=== PATIENT | male | born 1940 | race African-American/Black ===

== ENCOUNTER 2016-12-02 07:26 | Day surgery (SDC) | payer MEDICARE ==
[2016-11-27 15:33] VITALS: BMI 25.2
[~2016-12-02 07:26] MED LIST: LACTATED RINGERS 1,000 ML IV SCH
[2016-12-02 07:50] VITALS: TEMP 97
[2016-12-02] MEDS ORDERED: LACTATED RINGERS 1,000 ML IV ONE (07:56)
[2016-12-02 07:59] LABS: Glucose,Whole Blood 101 mg/dL (75-99)
--- NOTE | 2016-12-02 08:04 | P.GSHP ---
History of Present Illness H&P Date: 12/02/16 CHIEF COMPLAINT: GERD HISTORY OF PRESENT ILLNESS: The patient is a 76-year-old male who presents reports gastroesophageal reflux disease. Upper endoscopy was offered for further evaluation and management. PAST MEDICAL HISTORY: Please see list. PAST SURGICAL HISTORY: Please see list. MEDICATIONS: Please see list. ALLERGIES: Please see list. SOCIAL HISTORY: No illicit drug use FAMILY HISTORY: No reports of Crohn disease or ulcerative colitis. REVIEW OF ORGAN SYSTEMS: CONSTITUTIONAL: No reports of fevers or chills. GI: Denies any blood in stools or constipation. PHYSICAL EXAM: VITAL SIGNS: Stable GENERAL: Well-developed and pleasant in no acute distress. HEENT: No scleral icterus. Extraocular movements grossly intact. Moist buccal mucosa. NECK: Supple without lymphadenopathy. CHEST: Unlabored respirations. Equal bilateral excursions. CARDIOVASCULAR: Regular rate and rhythm. Distal 2+ pulses. ABDOMEN: Soft, nondistended. MUSCULOSKELETAL: No clubbing, cyanosis, or edema. ASSESSMENT: 1. Gastroesophageal reflux disease PLAN: 1. Recommend proceeding with an upper endoscopy Past Medical History Past Medical History: Atrial Fibrillation, Coronary Artery Disease (CAD), Cancer , CVA/TIA, Diabetes Mellitus, Eye Disorder, GERD/Reflux, Hyperlipidemia, Hypertension, Osteoarthritis (OA), Prostate Disorder, Sleep Apnea/CPAP/BIPAP Additional Past Medical History / Comment(s): NIDDM type II, kidney Stone, prostate cancer-1998, bilateral glaucoma, CVA PER CT SCAN (DENIES WEAKNESS OR PARALYSIS), NO TX USED FOR SLEEP APNEA., HIATAL HERNIA, recent sinus infection with antibiotics , vocal cord polyps. History of Any Multi-Drug Resistant Organisms: None Reported Past Surgical History: Appendectomy, Cardiac Valve Replacement, Heart Catheterization, Hernia Repair, Orthopedic Surgery, Pacemaker, Prostate Surgery Additional Past Surgical History / Comment(s): 01/15/16 laparoscopic hiatal hernia repair with mesh. Lt Knee Surg. EGD. AORTIC VALVE REPLACED. PACEMAKER - [employer] RIGHT CARPAL TUNNEL., CATARACTS, DAVID FUNDOPLICATION-01/15/16 Past Anesthesia/Blood Transfusion Reactions: No Reported Reaction Type of Cardiac Device: Permanent Pacemaker Device Placement Date:: 2014 Smoking Status: Former smoker - Past Family History Mother Family Medical History: CVA/TIA, Hypertension Additional Family Medical History / Comment(s): Mother in her 60's. She also had an enlarged heart. Sister(s) Family Medical History: Cancer, Coronary Artery Disease (CAD) Additional Family Medical History / Comment(s): LUNG CA Brother(s) Family Medical History: Cancer Additional Family Medical History / Comment(s): PROSTATE CA Medications and Allergies Home Medications Medication Instructions Recorded Confirmed Type Dorzolamide HCl/Timolol Maleat 1 drop BOTH EYES BID 09/27/14 11/27/16 History [Dorzolamide-Timolol Eye Drops] Aspirin EC [Ecotrin Low Dose] 81 mg PO DAILY #30 tablet.dr 10/04/14 11/27/16 Rx Metoprolol Tartrate [Lopressor] 25 mg PO BID #60 tab 10/04/14 11/27/16 Rx Simvastatin [Zocor] 20 mg PO HS #30 tab 10/04/14 11/27/16 Rx metFORMIN HCL [Glucophage] 500 mg PO BID-W/MEALS #60 tab 10/04/14 11/27/16 Rx Cetirizine HCl [Zyrtec] 10 mg PO DAILY 01/16/15 11/27/16 History Warfarin [Coumadin] 10 mg PO SUMOWETHFRSA 01/13/16 11/27/16 History Warfarin [Coumadin] 15 mg PO TU 01/13/16 11/27/16 History Brimonidine Tartrate [Alphagan P 1 drops BOTH EYES BID 11/27/16 11/27/16 History 0.1% Ophth Soln] Cefuroxime Axetil [Ceftin] 500 mg PO BID 11/27/16 11/27/16 History Latanoprost Ophth [Xalatan 0.005%] 1 drops BOTH EYES HS 11/27/16 11/27/16 History Multivitamins, Thera [Multivitamin 1 tab PO DAILY 11/27/16 11/27/16 History (formulary)] Olopatadine HCl [Pataday] 1 drop BOTH EYES DAILY 11/27/16 11/27/16 History Pilocarpine 2% Ophth Soln [Isopto 1 drops LEFT EYE Q6H 11/27/16 11/27/16 History Carpine 2%] Allergies Allergy/AdvReac Type Severity Reaction Status Date / Time Penicillins AdvReac Rash/Hives Verified 11/27/16 14:59
[2016-12-02] MEDS ORDERED: PROPOFOL 10 MG/ML 20 ML VIAL IV ONE (08:05)
[2016-12-02] MEDS ORDERED: LIDOCAINE 1% INJ 10MG/ML (20 ML MDV) ONE (08:05)
[2016-12-02 08:26] VITALS: PULSE 60
--- NOTE | 2016-12-02 08:26 | P.PCN ---
Date of Procedure: 12/02/16 Preoperative Diagnosis: Postoperative Diagnosis: Procedure(s) Performed: Implants: Indications for Procedure: Operative Findings: Description of Procedure: PREOPERATIVE DIAGNOSIS: Gastroesophageal reflux disease. POSTOPERATIVE DIAGNOSIS: Gastroesophageal reflux disease. OPERATION: Esophagogastroduodenoscopy. SURGEON: Lyly Goodwin MD ANESTHESIA: MAC. INDICATIONS: The patient is a 76-year-old male who presents with a history of reflux disease. He had a hiatal hernia repair in December 2015 for a large Hill grade 4 hiatal hernia. Benefits and risks of the procedure were described. Informed consent was obtained. DESCRIPTION: The patient was brought into the endoscopy suite and laid in the left lateral decubitus position. An Olympus gastroscope was passed along the posterior oropharynx down to the distal esophagus where the squamocolumnar junction was encountered at 40 cm from the incisors. The stomach was entered and no bile reflux was found. Additional findings are listed below. The first through third portion of the duodenum was examined and unremarkable. Retroflexion of the scope confirmed Hill grade 2 lower esophageal valve. The squamocolumnar junction demostrated no LA grade A erosive esophagitis. The stomach was desufflated. The patient tolerated the procedure well. FINDINGS: Squamocolumnar junction 40 cm from the incisors. Diaphragmatic hiatus at 40 cm. Hill grade 2 lower esophageal valve. No LA grade A erosive esophagitis. No active duodenitis. RECOMMENDATIONS: Medical therapy as needed. Upper endoscopy as needed.
[2016-12-02 08:47] VITALS: BP 107/67; RESP 18
== END 2016-12-02 09:10 | disposition home or self-care (01) ==
LOC: ORWHC2ENDO 07:26
PROVIDERS: ATTEND Surgery Plastic and Reconstructive Surgery
DX: K21.9 Gastro-esophageal reflux disease without esophagitis (principal); Z87.891 Personal history of nicotine dependence; I10 Essential (primary) hypertension; I48.91 Unspecified atrial fibrillation; I25.10 Atherosclerotic heart disease of native coronary artery without angina pectoris; E78.5 Hyperlipidemia, unspecified; E11.9 Type 2 diabetes mellitus without complications; Z79.84 Long term (current) use of oral hypoglycemic drugs; H40.9 Unspecified glaucoma; G47.33 Obstructive sleep apnea (adult) (pediatric); Z95.0 Presence of cardiac pacemaker; N42.9 Disorder of prostate, unspecified; Z79.01 Long term (current) use of anticoagulants; Z79.82 Long term (current) use of aspirin; Z79.899 Other long term (current) drug therapy; Z88.0 Allergy status to penicillin
CPT/HCPCS: 43235; J2001; J2704

== ENCOUNTER → 2016-12-03 | Outpatient (CLI) | payer MEDICARE ==
--- NOTE | 2016-12-03 22:50 | PN ---
PROGRESS NOTE DATE OF SERVICE: 12/03/2016 A 76-year-old gentleman has been followed in the [facility] for treatment of obstructive sleep apnea-hypopnea syndrome. Last time I saw patient a little bit less than 1 year ago. At that time, I recommended the patient to proceed with the sleep studies and CPAP titration for the treatment of obstructive sleep apnea, but for different family reasons, the patient was not able to do it. He left the [facility] at the time when he was supposed to come for the test. The patient has a history of obstructive sleep apnea-hypopnea syndrome in the past, but because of the problem with CPAP equipment, he stopped using equipment about 5 years ago. The patient continued to have snoring and awakenings from sleep. [place] Sleepiness Scale is in extremely high range, 21. The patient continued to have episodes of paroxysmal atrial fibrillation. CURRENT MEDICATIONS: 1. Metformin. 2. Cetirizine. 3. Metoprolol. 4. Simvastatin. 5. eye drops for glaucoma, 4 different types. PHYSICAL EXAMINATION: GENERAL: A 76-year-old gentleman without distress. VITAL SIGNS: BP 117/84, HR 74, RR 16, height 5 feet 3 inches, weight 163.8, BMI 28.1. Neck 15 inches in circumference. Temp is 98 degrees, oxygen saturation at room air 97%. HEENT: PERRLA, EOMI, evaluation of oropharynx showed tongue protrudes midline, status post uvulectomy. NECK: Supple, no JVD. Thyroid is not palpable. LUNGS: Clear to percussion and to auscultation. Good air exchange. No wheezing or rhonchi. HEART: S1, S2 regular. No murmurs, gallops, or rubs. ABDOMEN: Soft and nontender. Bowel sounds are present. No organomegaly appreciated. EXTREMITIES: No clubbing or cyanosis. PHYSIOLOGIST: Awake, alert, and oriented X3. Cranial nerves 2 to 7 intact. There is no fasciculation or atrophy. noted. No focal deficits observed. IMPRESSION: 1. Snoring, awakenings from sleep, significant excessive daytime sleepiness with [place] Sleepiness Scale of 21, history of obstructive sleep apnea-hypopnea syndrome in the past, obstructive sleep apnea-hypopnea syndrome. 2. Hypertension. 3. Diabetes mellitus. 4. Acid reflux. 5. Hyperlipidemia. 6. Status post aortic valve replacement. 7. Episodes of paroxysmal atrial fibrillation. 8. Status post permanent pacemaker insertion. 9. Glaucoma. Patient is using 4 different eye drops. 10.Status post tonsillectomy. 11.Status post uvulectomy. PLAN: 1. Polysomnography for evaluation of the patient breathing during the sleep. 2. CPAP titration for correction of respiratory abnormalities during sleep. 3. The patient should receive new CPAP supplies, including machine, mask, tube and filters. 4. No driving if feels any sleepiness. 5. Sleep hygiene with regular time in bed for at least 12 hours. Thank you very much for allowing me to participate in management of your patient. Rashawn Iqbal MD, PhD, FAASM Diplomat of [employer] Consulting Actuary of [facility] [place] MMODL / IJN: [id number] /
== END | disposition home or self-care (01) ==
LOC: SLEEP 15:03
PROVIDERS: ATTEND Internal Medicine
DX: G47.10 Hypersomnia, unspecified (principal); I10 Essential (primary) hypertension; E11.9 Type 2 diabetes mellitus without complications; K21.9 Gastro-esophageal reflux disease without esophagitis; E78.5 Hyperlipidemia, unspecified; H40.9 Unspecified glaucoma; I48.0 Paroxysmal atrial fibrillation; Z95.2 Presence of prosthetic heart valve; Z90.89 Acquired absence of other organs; Z90.79 Acquired absence of other genital organ(s); Z79.899 Other long term (current) drug therapy

== ENCOUNTER → 2017-09-15 | Outpatient (CLI) | payer MEDICARE | END | disposition home or self-care (01) | LOC: LABWHC1 15:42 | PROVIDERS: ATTEND Internal Medicine Infectious Disease | DX: R63.4 Abnormal weight loss (principal); R53.82 Chronic fatigue, unspecified; Z95.2 Presence of prosthetic heart valve | CPT/HCPCS: 36415; 87040 ==

== ENCOUNTER → 2017-10-08 | Outpatient (CLI) | payer MEDICARE ==
[2017-10-08 20:34] LABS: Gliadin AB IgA, Unit 29.3 U/mL
== END | disposition home or self-care (01) ==
LOC: LABWHC1 15:42
PROVIDERS: ATTEND Internal Medicine Gastroenterology
DX: R63.4 Abnormal weight loss (principal)
CPT/HCPCS: 36415; 83516

== ENCOUNTER → 2017-12-24 | Day surgery (SDC) | payer MEDICARE ==
[2017-12-23 09:06] VITALS: BMI 25.0
[~2017-12-24] MED LIST changes: +LACTATED RINGERS 1,000 ML IV ONE; -LACTATED RINGERS 1,000 ML IV SCH; +LIDOCAINE 1% 20 ML VIAL (10MG/ML) FOR IV START INTRADERMA ONE; +LIDOCAINE 1% INJ 10MG/ML (20 ML MDV) ONE; +PROPOFOL 10 MG/ML 20 ML VIAL IV ONE
[2017-12-24 08:07] VITALS: TEMP 98.1
--- NOTE | 2017-12-24 08:51 | P.PCN ---
Date of Procedure: 12/24/17 Procedure(s) Performed: BRIEF HISTORY: Patient is a 77-year-old, pleasant, Citizen Of [place] male scheduled for an upper endoscopy as a part of variation of positive celiac serology. Patient is having progressive weight loss of 20 pounds in the last 6 months duration and has a part of workup he had a celiac panel done that showed positive tissue transglutaminase antibody. His is hence scheduled for an upper endoscopy with a duodenal biopsy today.. PROCEDURE PERFORMED: Esophagogastroduodenoscopy with biopsy. PREOPERATIVE DIAGNOSIS: Mild antral gastritis and normal duodenum. IV sedation per anesthesia. PROCEDURE: After informed consent was obtained, the patient was brought into the endoscopy unit. IV sedation was administered by Anesthesia under continuous monitoring. Initially the Olympus GIF-140 video endoscope was inserted into the mouth. Esophagus intubated without any difficulty. It was gradually advanced into the stomach and duodenum and carefully examined. The bulb and the second part of the duodenum appeared normal. Multiple biopsies were done from the duodenum to rule out celiac disease. The scope at this time was withdrawn to the stomach, adequately insufflated with air, and upon careful examination, mucosa of the antrum, patchy areas of erythema consistent with gastritis and biopsies were done from this area. The body, cardia and the fundus appeared normal. The scope was then withdrawn into the esophagus. The GE junction was located at 39 cm from the incisors. The esophagus appeared normal. There were no erosions or ulcerations seen and the patient tolerated the procedure well. IMPRESSION: 1. Normal-appearing duodenum status post multiple biopsies to rule out celiac disease. 2. Mild antral gastritis. RECOMMENDATIONS: The findings of this examination were discussed with the patient as well as his family. He was advised to follow with the biopsy results.
[2017-12-24 09:06] VITALS: RESP 18
[2017-12-24 09:19] VITALS: BP 100/69; PULSE 72
[2017-12-27 08:53] LABS: Glucose,Whole Blood 92 mg/dL (75-99)
== END ==
LOC: ORWHC2ENDO 07:22
PROVIDERS: ATTEND Internal Medicine Gastroenterology
DX: K29.50 Unspecified chronic gastritis without bleeding (principal); R76.8 Other specified abnormal immunological findings in serum; E78.5 Hyperlipidemia, unspecified; E11.9 Type 2 diabetes mellitus without complications; Z88.0 Allergy status to penicillin; Z79.899 Other long term (current) drug therapy; Z79.01 Long term (current) use of anticoagulants
CPT/HCPCS: 88305; 43239; J2001; J2704

== ENCOUNTER → 2019-01-26 | Outpatient (CLI) | payer MEDICARE ==
--- NOTE | 2019-01-26 15:28 | PN ---
PROGRESS NOTE DATE OF SERVICE: 01/26/2019 An 78-year-old gentleman who has been followed in the Sleep Center for treatment of obstructive sleep apnea-hypopnea syndrome. Patient continued to use his CPAP equipment but has problems related to the mask because recently he has had surgery on his eye for glaucoma and with the using a full-face mask which covered nose, he feels discomfort in the area of his eye. [place] Sleepiness Scale today significantly increased to 15. I checked his CPAP unit, range of the pressure is 6-10 with average pressure 9 cm of water. Leak is 8 L/minute, which is acceptable for the full-face mask. Usage for the last month is 11/30 nights and 30 nights more than 4 hours with average usage 4.1 hours. Unfortunately, apnea-hypopnea index in the quite high range 20.9 with central apnea index reading 10.6. MEDICATIONS: Eliquis, simvastatin, cetirizine, eye drops, prednisone and . PHYSICAL EXAM: Patient in no distress. BP 123/83, HR 64, RR 16, height 5, 2, weight 159.8, which is in 3 pounds more than during the last visit, temperature 97.4, oxygen saturation at room air 100%. OROPHARYNX: Low position of soft palate. No uvula. NECK: Supple, no JVD. Thyroid is not palpable. LUNGS: Clear to percussion and to auscultation. Good air exchange. No wheezing or rhonchi. HEART: S1, S2 regular. No murmurs, gallops, or rubs. ABDOMEN: Soft and nontender. Bowel sounds are present. No organomegaly appreciated. EXTREMITIES: No clubbing or cyanosis. DIRECTOR RADIO NEWS: Awake, alert, and oriented X3. Cranial nerves 2 to 7 intact. There is no fasciculation or atrophy. noted. No focal deficits observed. IMPRESSION: 1. Mostly central obstructive sleep apnea-hypopnea syndrome in severe range with apnea- hypopnea index 30.1, improved but not normalized on CPAP. Apnea-hypopnea index on CPAP 20.9, central apnea index 10.6. 2. Hypertension. 3. Diabetes mellitus. 4. Acid reflux. 5. Hyperlipidemia. 6. Status post aortic valve replacement. 7. History of paroxysmal atrial fibrillation. 8. Status post permanent pacemaker insertion. 9. Glaucoma, status post stent insertion for treatment of glaucoma to the left eye. 10.Status post tonsillectomy. 11.Status post uvulectomy. PLAN: 1. Patient needs titration with BiPAP, possibly BiPAP ST mode or if necessary auto servo ventilator for possibility to use auto servo ventilator we have to check ejection fraction. 2. We need to get information about results of recent echocardiogram with ejection fraction. 3. Sleep hygiene with regular time in bed for at least 7.5 hours. 4. No driving if feeling sleepiness. 5. Will see patient with Dream Wear mask which goes under the nose and this is full- face mask, but does not cover the nose above. Subsequently it does not touch the area of the eyes. 6. Presently, patient will continue to use his CPAP equipment with the changes of mask before next titration will be done. Thank you very much for allowing me to participate in the management of your patient. Sincerely, Rashawn Iqbal MD, PhD, FAASM Diplomat of [employer] Tipping Machine Operator [employer] of [facility] [place] MMODL / IJN: [id number] /
== END | disposition home or self-care (01) ==
LOC: SLEEP 13:09
PROVIDERS: ATTEND Internal Medicine
DX: G89.29 Other chronic pain (principal); I10 Essential (primary) hypertension; E11.9 Type 2 diabetes mellitus without complications; K21.9 Gastro-esophageal reflux disease without esophagitis; E78.5 Hyperlipidemia, unspecified; Z95.4 Presence of other heart-valve replacement; Z95.0 Presence of cardiac pacemaker; Z96.89 Presence of other specified functional implants; Z86.79 Personal history of other diseases of the circulatory system; Z90.89 Acquired absence of other organs; Z79.899 Other long term (current) drug therapy

== ENCOUNTER → 2021-09-22 | Outpatient (CLI) | payer MEDICARE | END | disposition home or self-care (01) | LOC: LABWHC1 09:56 | PROVIDERS: ATTEND Internal Medicine Interventional Cardiology | DX: I48.91 Unspecified atrial fibrillation (principal); R53.83 Other fatigue | CPT/HCPCS: 36415; 84443 ==